=== PATIENT | male | born 1935 | race Caucasian/White ===

== ENCOUNTER 2019-05-15 12:09 | Inpatient (IN) ==
[2019-05-15 13:27] LABS: Basophils % 0.4 % (0.0-0.8); Eosinophils # 0.2 10*3/uL (0.0-0.87); Eosinophils % 2.4 % (0.00-10.9); Hematocrit 45.9 VOL% (42.0-52.0); Hemoglobin 15.6 GM/DL (14.0-18.0); Immature Granulocytes % 0.8 %; Immature Granulocytes Absolute 0.07 #; Lymphocytes # 2.6 10*3/uL (1.4-4.0); Lymphocytes % 28.3 % (21.2-54.2); Mean Corpuscular Volume 99.4 FL (87-102); Mean Platelet Volume 10.3 FL (9.6-12.0); Monocytes % 9.8 % (1.7-12.7); Neutrophils % 58.3 % (38.7-73.9); Platelet Count 249 T/CUMM (130-400); Red Blood Count 4.62 MC/CUMM (3.8-5.5); White Blood Count 9.2 T/CUMM (4-12)
[2019-05-15 13:58] LABS: Albumin 3.8 G/DL (3.4-5.0); Bilirubin,Total 0.8 MG/DL (0.2-1.0); Calcium 9.2 MG/DL (8.5-10.1); Osmolality,Calculated 289.7 MOS/KG (273-304); Total Protein 7.2 G/DL (6.4-8.3)
[2019-05-15 14:49] LABS: Apearance,Urine CLEAR (Clear); Bacteria,Urine Occasional /HPF (Few); Bilirubin,Urine Negative (Negative); Blood, Urine Negative (Negative); Glucose,Urine (UA) >=500 mg/dL (Negative); Ketones,Urine 20 mg/dL (Negative); Nitrite,Urine Negative (Negative); Protein,Urine Negative; RBC,Urine 5 /HPF (0-4); Squamous Epithelial Cell,Urine Occasional /HPF (0-10); Urine Color Yellow (Yellow); Urine Specific Gravity 1.021 (1.001-1.035); WBC,Urine 6 /HPF (0-6)
[2019-05-15] MEDS ORDERED: MINERAL OIL ENEMA 133 ML BOTTLE RECTAL ONE (17:59)
[2019-05-15] MEDS ORDERED: DEXTROSE 10% 25 GM/250 ML BAG IV PRN (18:02)
[2019-05-15] MEDS ORDERED: GLUCAGON 1 MG VIAL IM PRN (18:02)
[2019-05-15] MEDS: cefTRIAXone 1,000 MG in SYRINGE 1 EACH IV SCH (18:33)
[2019-05-15] MEDS: ASPIRIN EC 81 MG TABLET PO SCH (20:20)
[2019-05-15] MEDS: DONEPEZIL 10 MG TABLET PO SCH (20:20)
[2019-05-15] MEDS: CLOPIDOGREL 75 MG TABLET PO SCH (20:21)
[2019-05-15] MEDS: INSULIN LISPRO 100 UNIT/ML SUBCUT SCH (21:06)
[2019-05-16] MEDS ORDERED: MORPHINE 4 MG/1 ML VIAL IV ONE (04:29)
[2019-05-16] MEDS ORDERED: HYDROCORTISONE 2.5% RECTAL CREAM 30 GM TUBE TOP ONE (04:30)
[2019-05-16 04:31] LABS: Basophils # 0.1 10*3/uL (0.0-0.2); Basophils % 0.4 % (0.0-0.8); Eosinophils # 0.5 10*3/uL (0.0-0.87); Eosinophils % 4.2 % (0.00-10.9); Hematocrit 43.2 VOL% (42.0-52.0); Hemoglobin 14.9 GM/DL (14.0-18.0); Immature Granulocytes % 0.8 %; Immature Granulocytes Absolute 0.09 #; Lymphocytes # 3.8 10*3/uL (1.4-4.0); Lymphocytes % 33.5 % (21.2-54.2); Mean Corpuscular HGB Conc 34.5 GM/DL (32-36); Mean Corpuscular Volume 97.5 FL (87-102); Mean Platelet Volume 10.6 FL (9.6-12.0); Monocytes % 12.4 % (1.7-12.7); Neutrophils % 48.7 % (38.7-73.9); Platelet Count 260 T/CUMM (130-400); Red Blood Count 4.43 MC/CUMM (3.8-5.5); Red Cell Distribution Width 12.8 % (9.3-17.3); White Blood Count 11.4 T/CUMM (4-12)
[2019-05-16 05:14] LABS: Albumin 3.6 G/DL (3.4-5.0); Bilirubin,Total 0.7 MG/DL (0.2-1.0); Calcium 9.3 MG/DL (8.5-10.1); Osmolality,Calculated 284.5 MOS/KG (273-304); Thyroid Stimulating Hormone 1.88 uIU/ml (0.358-3.74); Total Protein 7.2 G/DL (6.4-8.3)
[2019-05-16] MEDS: INSULIN LISPRO 100 UNIT/ML SUBCUT SCH ×4 (08:57→20:39)
[2019-05-16] MEDS: POLYETHYLENE GLYCOL POWDER 17 GM PACK PO SCH (08:57)
[2019-05-16] MEDS: LISINOPRIL 20 MG TABLET PO SCH (08:58)
[2019-05-16] MEDS: DUTASTERIDE 0.5 MG CAPSULE PO SCH (08:59)
[2019-05-16] MEDS: DOCUSATE SODIUM 100 MG CAPSULE PO SCH ×2 (08:59→20:39)
[2019-05-16] MEDS: OXYBUTYNIN 5 MG TABLET PO SCH (08:59)
[2019-05-16] MEDS: DILTIAZEM CD 180 MG CAPSULE PO SCH (08:59)
[2019-05-16] MEDS ORDERED: MAGNESIUM CITRATE 300 ML BOTTLE PO PRN (09:39)
[2019-05-16] MEDS: PANTOPRAZOLE 40 MG TABLET PO SCH (14:03)
[2019-05-16] MEDS: cefTRIAXone 1,000 MG in SYRINGE 1 EACH IV SCH (17:20)
[2019-05-16] MEDS: DONEPEZIL 10 MG TABLET PO SCH (20:39)
[2019-05-16] MEDS: ASPIRIN EC 81 MG TABLET PO SCH (20:39)
[2019-05-16] MEDS: CLOPIDOGREL 75 MG TABLET PO SCH (20:39)
[2019-05-17] MEDS ORDERED: MELATONIN 3 MG TABLET PO PRN (00:27)
[2019-05-17 05:58] LABS: Basophils % 0.3 % (0.0-0.8); Eosinophils # 0.4 10*3/uL (0.0-0.87); Eosinophils % 4.3 % (0.00-10.9); Hematocrit 39.2 VOL% (42.0-52.0); Hemoglobin 13.4 GM/DL (14.0-18.0); Lymphocytes # 2.8 10*3/uL (1.4-4.0); Lymphocytes % 28.8 % (21.2-54.2); Mean Corpuscular HGB Conc 34.2 GM/DL (32-36); Mean Corpuscular Volume 98.2 FL (87-102); Mean Platelet Volume 10.7 FL (9.6-12.0); Monocytes % 13.1 % (1.7-12.7); Neutrophils % 52.5 % (38.7-73.9); Platelet Count 226 T/CUMM (130-400); Red Blood Count 3.99 MC/CUMM (3.8-5.5); Red Cell Distribution Width 12.9 % (9.3-17.3); White Blood Count 9.7 T/CUMM (4-12)
[2019-05-17 06:06] LABS: Calcium 8.9 MG/DL (8.5-10.1); Osmolality,Calculated 294.3 MOS/KG (273-304)
[2019-05-17] MEDS: INSULIN LISPRO 100 UNIT/ML SUBCUT SCH ×4 (09:11→21:55)
[2019-05-17] MEDS: POLYETHYLENE GLYCOL POWDER 17 GM PACK PO SCH (09:12)
[2019-05-17] MEDS: DILTIAZEM CD 180 MG CAPSULE PO SCH (09:12)
[2019-05-17] MEDS: LISINOPRIL 20 MG TABLET PO SCH (09:12)
[2019-05-17] MEDS: OXYBUTYNIN 5 MG TABLET PO SCH (09:13)
[2019-05-17] MEDS: PANTOPRAZOLE 40 MG TABLET PO SCH (09:13)
[2019-05-17] MEDS: DUTASTERIDE 0.5 MG CAPSULE PO SCH (09:13)
[2019-05-17] MEDS: DOCUSATE SODIUM 100 MG CAPSULE PO SCH ×2 (09:13→20:56)
[2019-05-17] MEDS: CLOPIDOGREL 75 MG TABLET PO SCH (20:56)
[2019-05-17] MEDS: cefTRIAXone 1,000 MG in SYRINGE 1 EACH IV SCH (20:56)
[2019-05-17] MEDS: ASPIRIN EC 81 MG TABLET PO SCH (20:56)
[2019-05-17] MEDS: DONEPEZIL 10 MG TABLET PO SCH (20:56)
[2019-05-17] MEDS ORDERED: ACETAMINOPHEN 500 MG TABLET PO PRN (23:55)
[2019-05-18] MEDS: DILTIAZEM CD 180 MG CAPSULE PO SCH (08:53)
[2019-05-18] MEDS: DUTASTERIDE 0.5 MG CAPSULE PO SCH (08:53)
[2019-05-18] MEDS: DOCUSATE SODIUM 100 MG CAPSULE PO SCH (08:54)
[2019-05-18] MEDS: PANTOPRAZOLE 40 MG TABLET PO SCH (08:54)
[2019-05-18] MEDS: OXYBUTYNIN 5 MG TABLET PO SCH (08:54)
[2019-05-18] MEDS: POLYETHYLENE GLYCOL POWDER 17 GM PACK PO SCH (08:55)
[2019-05-18] MEDS: LISINOPRIL 20 MG TABLET PO SCH (08:58)
[2019-05-18] MEDS: INSULIN LISPRO 100 UNIT/ML SUBCUT SCH ×2 (09:02→12:15)
[2019-05-18 11:01] LABS: Basophils # 0.1 10*3/uL (0.0-0.2); Basophils % 0.5 % (0.0-0.8); Eosinophils # 0.6 10*3/uL (0.0-0.87); Hematocrit 41.7 VOL% (42.0-52.0); Hemoglobin 14.3 GM/DL (14.0-18.0); Immature Granulocytes % 0.9 %; Immature Granulocytes Absolute 0.08 #; Lymphocytes # 2.2 10*3/uL (1.4-4.0); Lymphocytes % 23.3 % (21.2-54.2); Mean Corpuscular HGB Conc 34.3 GM/DL (32-36); Mean Corpuscular Volume 98.3 FL (87-102); Mean Platelet Volume 10.3 FL (9.6-12.0); Monocytes % 9.6 % (1.7-12.7); Neutrophils % 59.7 % (38.7-73.9); Platelet Count 235 T/CUMM (130-400); Red Blood Count 4.24 MC/CUMM (3.8-5.5); White Blood Count 9.4 T/CUMM (4-12)
[2019-05-18 11:35] LABS: Calcium 8.5 MG/DL (8.5-10.1); Osmolality,Calculated 288.8 MOS/KG (273-304)
[2019-05-18 12:15] VITALS: BP 111/50
== END 2019-05-18 13:22 | disposition home or self-care (01) | DRG 389 ==
LOC: N.ED 12:09 → N.EDINP 16:58 → SUATTDRO 16:58 → N.2E 17:34
PROVIDERS: ADMIT Internal Medicine; ATTEND Internal Medicine Nephrology

== ENCOUNTER 2019-07-21 21:48 | Inpatient (IN) ==
[2019-07-21] MEDS ORDERED: DEXTROSE 50% 25 GM/50 ML SYRINGE IV ONE (21:57)
[2019-07-21] MEDS ORDERED: DEXTROSE 50% 25 GM/50 ML VIAL IV STA (21:59)
[2019-07-21] MEDS ORDERED: DEXTROSE 5% 250 ML IV SCH ×3 (22:00→22:30)
[2019-07-21 22:19] LABS: Basophils % 0.2 % (0.0-0.8); Eosinophils # 0.2 10*3/uL (0.0-0.87); Eosinophils % 1.9 % (0.00-10.9); Hematocrit 39.9 VOL% (42.0-52.0); Hemoglobin 13.2 GM/DL (14.0-18.0); Immature Granulocytes % 0.5 %; Immature Granulocytes Absolute 0.05 #; Lymphocytes # 1.3 10*3/uL (1.4-4.0); Lymphocytes % 13.4 % (21.2-54.2); Mean Corpuscular HGB Conc 33.1 GM/DL (32-36); Mean Corpuscular Volume 102.8 FL (87-102); Mean Platelet Volume 10.2 FL (9.6-12.0); Monocytes % 8.6 % (1.7-12.7); Neutrophils % 75.4 % (38.7-73.9); Platelet Count 218 T/CUMM (130-400); Red Blood Count 3.88 MC/CUMM (3.8-5.5); Red Cell Distribution Width 13.7 % (9.3-17.3); White Blood Count 9.4 T/CUMM (4-12)
[2019-07-21 22:30] LABS: INR 0.9; PT Patient Result 10.2 SECS (9.6-12.2)
[2019-07-21 22:50] LABS: Alanine Aminotransferase 22 U/L (16-61); Albumin 3.5 G/DL (3.4-5.0); Alkaline Phosphatase 82 U/L (45-117); Amylase 64 U/L (25-115); Aspartate Amino Transferase 26 U/L (0-37); Blood Urea Nitrogen 28 MG/DL (7-18); Calcium 9.5 MG/DL (8.5-10.1); Estimated Glom Filtration Rate 34 ML/MIN; Osmolality,Calculated 283.3 MOS/KG (273-304)
[2019-07-21 22:58] LABS: Glucose 42 MG/DL (74-106); Troponin I 0.102 NG/ML (0.00-0.045)
[2019-07-22 00:54] LABS: Apearance,Urine CLEAR (Clear); Bilirubin,Urine Negative (Negative); Blood, Urine Negative (Negative); Glucose,Urine (UA) 50 mg/dL (Negative); Hyaline Casts,Urine 3 /LPF (0-3); Ketones,Urine Negative (Negative); Mucus,Urine Occasional /LPF (Occasional); Nitrite,Urine Negative (Negative); Protein,Urine Negative; RBC,Urine 1 /HPF (0-4); Squamous Epithelial Cell,Urine Occasional /HPF (0-10); Urine Color Yellow (Yellow); Urine Specific Gravity 1.017 (1.001-1.035); Urine Urobilinogen < 2.0 EU/DL (0.2-1.0); WBC,Urine <1 /HPF (0-6)
[2019-07-22] MEDS ORDERED: ACETAMINOPHEN 325 MG TABLET PO PRN (03:33)
[2019-07-22] MEDS ORDERED: DEXTROSE 50% 25 GM/50 ML SYRINGE IV PRN (03:33)
[2019-07-22] MEDS ORDERED: GLUCAGON 1 MG VIAL IM PRN (03:33)
[2019-07-22] MEDS ORDERED: ONDANSETRON 4 MG/2 ML VIAL IV PRN (03:33)
[2019-07-22] MEDS ORDERED: DEXTROSE 10% 250 ML BAG IV PRN (03:42)
[2019-07-22] MEDS: INSULIN REGULAR 100 UNIT/ML SUBCUT SCH ×9 (06:41→22:45)
[2019-07-22] MEDS ORDERED: INSULIN REGULAR 100 UNIT/ML SUBCUT SCH (07:30)
[2019-07-22 08:16] LABS: Albumin 2.7 G/DL (3.4-5.0); Bilirubin,Total 0.4 MG/DL (0.2-1.0); Calcium 8.6 MG/DL (8.5-10.1); Osmolality,Calculated 285.5 MOS/KG (273-304); Total Protein 5.8 G/DL (6.4-8.3)
[2019-07-22] MEDS ORDERED: Empagliflozin [Jardiance] 10 MG PO SCH (09:00)
[2019-07-22] MEDS ORDERED: NON-FORMULARY MEDICATION (Omeprazole 20 MG) PO SCH (09:00)
[2019-07-22] MEDS: CHOLECALCIFEROL 400 UNIT TABLET PO SCH (09:11)
[2019-07-22] MEDS: MULTIVITAMIN (CENTRUM) TABLET PO SCH (09:11)
[2019-07-22] MEDS: DILTIAZEM CD 180 MG CAPSULE PO SCH (09:11)
[2019-07-22] MEDS: CALCIUM (CARBONATE) 500 MG TABLET PO SCH (09:11)
[2019-07-22] MEDS: OMEGA 3 ACID ETHYL ESTERS 1 GM CAPSULE PO SCH (09:11)
[2019-07-22] MEDS: SELENIUM 200 MCG TABLET PO SCH (09:11)
[2019-07-22] MEDS: lisinopriL 20 MG TABLET PO SCH (09:11)
[2019-07-22] MEDS: ENOXAPARIN 30 MG/0.3 ML SYRINGE SUBCUT SCH (09:12)
[2019-07-22] MEDS: DUTASTERIDE 0.5 MG CAPSULE PO SCH (09:12)
[2019-07-22] MEDS: MEMANTINE 10 MG TABLET PO SCH ×2 (09:12→21:36)
[2019-07-22] MEDS: MAGNESIUM OXIDE 400 MG TABLET PO SCH (09:12)
[2019-07-22] MEDS: PANTOPRAZOLE 40 MG TABLET PO SCH (09:12)
[2019-07-22] MEDS: DONEPEZIL 10 MG TABLET PO SCH (21:36)
[2019-07-23] MEDS: INSULIN REGULAR 100 UNIT/ML SUBCUT SCH ×11 (00:02→21:24)
[2019-07-23 05:54] LABS: Free T4 (Free Thyroxine) 0.86 NG/DL (0.76-1.46); Risk Ratio 2.66; Thyroid Stimulating Hormone 2.63 uIU/ml (0.358-3.74); VLDL CHOLESTEROL 19.2 MG/DL
[2019-07-23] MEDS: CHOLECALCIFEROL 400 UNIT TABLET PO SCH (08:47)
[2019-07-23] MEDS: lisinopriL 20 MG TABLET PO SCH (08:47)
[2019-07-23] MEDS: PANTOPRAZOLE 40 MG TABLET PO SCH (08:47)
[2019-07-23] MEDS: DUTASTERIDE 0.5 MG CAPSULE PO SCH (08:47)
[2019-07-23] MEDS: DILTIAZEM CD 180 MG CAPSULE PO SCH (08:48)
[2019-07-23] MEDS: OMEGA 3 ACID ETHYL ESTERS 1 GM CAPSULE PO SCH (08:48)
[2019-07-23] MEDS: CALCIUM (CARBONATE) 500 MG TABLET PO SCH (08:48)
[2019-07-23] MEDS: SELENIUM 200 MCG TABLET PO SCH (08:49)
[2019-07-23] MEDS: MEMANTINE 10 MG TABLET PO SCH ×2 (08:49→21:21)
[2019-07-23] MEDS: MAGNESIUM OXIDE 400 MG TABLET PO SCH (08:49)
[2019-07-23] MEDS: MULTIVITAMIN (CENTRUM) TABLET PO SCH (08:49)
[2019-07-23] MEDS: ENOXAPARIN 30 MG/0.3 ML SYRINGE SUBCUT SCH (08:49)
[2019-07-23] MEDS: amLODIPine 10 MG TABLET PO SCH (17:21)
[2019-07-23] MEDS: ceFAZolin 2,000 MG in PREMIX 1 EACH IV SCH (17:22)
[2019-07-23] MEDS ORDERED: INSULIN GLARGINE 100 UNIT/ML SUBCUT SCH (21:00)
[2019-07-23] MEDS: DONEPEZIL 10 MG TABLET PO SCH (21:21)
[2019-07-24] MEDS: INSULIN REGULAR 100 UNIT/ML SUBCUT SCH ×12 (00:30→22:40)
[2019-07-24] MEDS: ceFAZolin 2,000 MG in PREMIX 1 EACH IV SCH ×3 (01:45→18:07)
[2019-07-24 06:13] LABS: Basophils % 0.4 % (0.0-0.8); Eosinophils # 0.8 10*3/uL (0.0-0.87); Eosinophils % 10.2 % (0.00-10.9); Hematocrit 40.7 VOL% (42.0-52.0); Hemoglobin 13.6 GM/DL (14.0-18.0); Immature Granulocytes % 0.3 %; Immature Granulocytes Absolute 0.02 #; Lymphocytes # 2.2 10*3/uL (1.4-4.0); Lymphocytes % 30.1 % (21.2-54.2); Mean Corpuscular HGB Conc 33.4 GM/DL (32-36); Mean Corpuscular Volume 101.5 FL (87-102); Mean Platelet Volume 10.3 FL (9.6-12.0); Monocytes % 14.1 % (1.7-12.7); Neutrophils % 44.9 % (38.7-73.9); Platelet Count 221 T/CUMM (130-400); Red Blood Count 4.01 MC/CUMM (3.8-5.5); Red Cell Distribution Width 13.2 % (9.3-17.3); White Blood Count 7.4 T/CUMM (4-12)
[2019-07-24 06:36] LABS: Calcium 8.8 MG/DL (8.5-10.1); Osmolality,Calculated 281.7 MOS/KG (273-304)
[2019-07-24] MEDS: OMEGA 3 ACID ETHYL ESTERS 1 GM CAPSULE PO SCH (09:23)
[2019-07-24] MEDS: DUTASTERIDE 0.5 MG CAPSULE PO SCH (09:23)
[2019-07-24] MEDS: MULTIVITAMIN (CENTRUM) TABLET PO SCH (09:23)
[2019-07-24] MEDS: lisinopriL 20 MG TABLET PO SCH (09:23)
[2019-07-24] MEDS: SELENIUM 200 MCG TABLET PO SCH (09:23)
[2019-07-24] MEDS: MEMANTINE 10 MG TABLET PO SCH ×2 (09:24→21:39)
[2019-07-24] MEDS: amLODIPine 10 MG TABLET PO SCH (09:24)
[2019-07-24] MEDS: MAGNESIUM OXIDE 400 MG TABLET PO SCH (09:24)
[2019-07-24] MEDS: CALCIUM (CARBONATE) 500 MG TABLET PO SCH (09:24)
[2019-07-24] MEDS: PANTOPRAZOLE 40 MG TABLET PO SCH (09:24)
[2019-07-24] MEDS: CHOLECALCIFEROL 400 UNIT TABLET PO SCH (09:24)
[2019-07-24] MEDS: DILTIAZEM CD 180 MG CAPSULE PO SCH (09:25)
[2019-07-24] MEDS: ENOXAPARIN 30 MG/0.3 ML SYRINGE SUBCUT SCH (09:26)
[2019-07-24] MEDS: DOXYCYCLINE HYCLATE INJ 100 MG in SODIUM CHLORIDE 0.9% 100 ML IV SCH ×2 (10:14→21:39)
[2019-07-24] MEDS ORDERED: INSULIN GLARGINE 100 UNIT/ML SUBCUT SCH ×2 (13:14→21:00)
[2019-07-24] MEDS: hydrALAZINE 25 MG TABLET PO SCH ×2 (13:45→21:39)
[2019-07-24] MEDS: DONEPEZIL 10 MG TABLET PO SCH (21:39)
[2019-07-25] MEDS: INSULIN REGULAR 100 UNIT/ML SUBCUT SCH ×7 (00:30→13:53)
[2019-07-25] MEDS: ceFAZolin 2,000 MG in PREMIX 1 EACH IV SCH ×2 (02:16→08:43)
[2019-07-25 06:07] LABS: Calcium 9.2 MG/DL (8.5-10.1)
[2019-07-25] MEDS: DILTIAZEM CD 180 MG CAPSULE PO SCH (08:41)
[2019-07-25] MEDS: OMEGA 3 ACID ETHYL ESTERS 1 GM CAPSULE PO SCH (08:41)
[2019-07-25] MEDS: DUTASTERIDE 0.5 MG CAPSULE PO SCH (08:41)
[2019-07-25] MEDS: lisinopriL 20 MG TABLET PO SCH (08:42)
[2019-07-25] MEDS: MEMANTINE 10 MG TABLET PO SCH (08:42)
[2019-07-25] MEDS: hydrALAZINE 25 MG TABLET PO SCH (08:42)
[2019-07-25] MEDS: CALCIUM (CARBONATE) 500 MG TABLET PO SCH (08:42)
[2019-07-25] MEDS: amLODIPine 10 MG TABLET PO SCH (08:42)
[2019-07-25] MEDS: PANTOPRAZOLE 40 MG TABLET PO SCH (08:42)
[2019-07-25] MEDS: CHOLECALCIFEROL 400 UNIT TABLET PO SCH (08:42)
[2019-07-25] MEDS: MULTIVITAMIN (CENTRUM) TABLET PO SCH (08:42)
[2019-07-25] MEDS: MAGNESIUM OXIDE 400 MG TABLET PO SCH (08:42)
[2019-07-25] MEDS: SELENIUM 200 MCG TABLET PO SCH (08:42)
[2019-07-25] MEDS: ENOXAPARIN 30 MG/0.3 ML SYRINGE SUBCUT SCH (08:43)
[2019-07-25] MEDS: DOXYCYCLINE HYCLATE INJ 100 MG in SODIUM CHLORIDE 0.9% 100 ML IV SCH (08:43)
[2019-07-25 12:11] VITALS: BP 166/73
== END 2019-07-25 13:48 | disposition home or self-care (01) | DRG 637 ==
LOC: EDBD → EDUNIT# → N.ED 21:48 → N.EDINP 21:48 → N.3E 07-22 03:36 → UNDODISOB 07-25 13:48
PROVIDERS: ADMIT Internal Medicine; ATTEND Internal Medicine

== ENCOUNTER 2019-07-26 19:14 | Observation (INO) ==
[2019-07-26 20:41] LABS: Basophils % 0.4 % (0.0-0.8); Eosinophils # 0.2 10*3/uL (0.0-0.87); Hematocrit 44.5 VOL% (42.0-52.0); Hemoglobin 15.4 GM/DL (14.0-18.0); Immature Granulocytes % 0.7 %; Immature Granulocytes Absolute 0.07 #; Lymphocytes # 1.5 10*3/uL (1.4-4.0); Lymphocytes % 15.6 % (21.2-54.2); Mean Corpuscular HGB Conc 34.6 GM/DL (32-36); Mean Corpuscular Volume 98.7 FL (87-102); Mean Platelet Volume 10.8 FL (9.6-12.0); Monocytes % 8.1 % (1.7-12.7); Neutrophils % 73.2 % (38.7-73.9); Platelet Count 178 T/CUMM (130-400); Red Blood Count 4.51 MC/CUMM (3.8-5.5); Red Cell Distribution Width 13.8 % (9.3-17.3); White Blood Count 9.7 T/CUMM (4-12)
[2019-07-26 20:48] LABS: Platelet Estimate Adequate
[2019-07-26 20:55] LABS: Apearance,Urine CLEAR (Clear); Bilirubin,Urine Negative (Negative); Blood, Urine Negative (Negative); Glucose,Urine (UA) 50 mg/dL (Negative); Hyaline Casts,Urine 3 /LPF (0-3); Ketones,Urine Negative (Negative); Mucus,Urine Occasional /LPF (Occasional); Nitrite,Urine Negative (Negative); Protein,Urine Negative; RBC,Urine 1 /HPF (0-4); Squamous Epithelial Cell,Urine Occasional /HPF (0-10); Urine Color Yellow (Yellow); Urine Specific Gravity 1.013 (1.001-1.035); Urine Urobilinogen < 2.0 EU/DL (0.2-1.0); WBC,Urine <1 /HPF (0-6)
[2019-07-26 21:03] LABS: Albumin 3.5 G/DL (3.4-5.0); Bilirubin,Total 0.6 MG/DL (0.2-1.0); Calcium 9.1 MG/DL (8.5-10.1)
[2019-07-26] MEDS ORDERED: ACETAMINOPHEN 325 MG TABLET PO PRN (22:48)
[2019-07-26] MEDS ORDERED: DEXTROSE 50% 25 GM/50 ML VIAL IV PRN (22:48)
[2019-07-26] MEDS ORDERED: ONDANSETRON 4 MG/2 ML VIAL IV PRN (22:48)
[2019-07-26] MEDS ORDERED: GLUCAGON 1 MG VIAL IM PRN (22:48)
[2019-07-27 12:41] VITALS: BP 145/74
== END 2019-07-27 14:56 | disposition home or self-care (01) ==
LOC: EDBD → EDUNIT# → N.ED 19:14 → N.EDINP 19:14 → SUPCPDRO 22:48 → N.5E 23:18
PROVIDERS: ADMIT Internal Medicine; ATTEND Internal Medicine

== ENCOUNTER 2020-01-24 17:00 | Inpatient (IN) ==
[2020-01-24] MEDS ORDERED: SODIUM CHLORIDE 0.9% 1,000 ML IV STA (17:32)
[2020-01-24 18:15] LABS: Basophils % 0.3 % (0.0-0.8); Eosinophils # 0.2 10*3/uL (0.0-0.87); Eosinophils % 2.5 % (0.00-10.9); Hematocrit 39.8 VOL% (42.0-52.0); Hemoglobin 13.6 GM/DL (14.0-18.0); Immature Granulocytes % 0.5 %; Immature Granulocytes Absolute 0.03 #; Lymphocytes % 30.5 % (21.2-54.2); Mean Corpuscular HGB Conc 34.2 GM/DL (32-36); Mean Platelet Volume 11.1 FL (9.6-12.0); Monocytes % 8.9 % (1.7-12.7); Neutrophils % 57.3 % (38.7-73.9); Platelet Count 191 T/CUMM (130-400); Red Blood Count 4.06 MC/CUMM (3.8-5.5); Red Cell Distribution Width 12.6 % (9.3-17.3); White Blood Count 6.4 T/CUMM (4-12)
[2020-01-24 18:35] LABS: PT Patient Result 11.2 SECS (9.8-11.9); Partial Thromboplastin Time 27.6 SECS (23.9-33.8)
[2020-01-24 18:41] LABS: Alanine Aminotransferase 16 U/L (16-61); Albumin 3.5 G/DL (3.4-5.0); Alkaline Phosphatase 87 U/L (45-117); Aspartate Amino Transferase 15 U/L (0-37); Blood Urea Nitrogen 56 MG/DL (7-18); Calcium 8.9 MG/DL (8.5-10.1); Estimated Glom Filtration Rate 11 ML/MIN; Glucose 409 MG/DL (74-106); Total Protein 6.9 G/DL (6.4-8.3); Troponin I < 0.015 NG/ML (0.00-0.045)
[2020-01-24] MEDS ORDERED: INSULIN REGULAR 100 UNIT/ML IV STA (18:56)
[2020-01-24 19:33] LABS: ABG Base Excess -4.2 MMOL/L (-2.5-2.5); ABG HCO3 16.5 MMOL/L (20-26); ABG Oxygen Saturation 96.1 % (95-100); ABG PCO2 21.1 MM HG (35-48); ABG PH 7.511 (7.35-7.45); ABG PO2 79.8 MM HG (80-95); ABG TCO2 17.1 MMOL/L (23-27); Allen Test Positive
[2020-01-24 19:49] LABS: Ferritin 139.3 ng/ml (26-388)
[2020-01-24] MEDS ORDERED: ONDANSETRON 4 MG/2 ML VIAL IV PRN (20:17)
[2020-01-24] MEDS ORDERED: DOCUSATE SODIUM 100 MG CAPSULE PO PRN (20:17)
[2020-01-24] MEDS ORDERED: ACETAMINOPHEN 325 MG TABLET PO PRN (20:17)
[2020-01-24] MEDS ORDERED: GLUCAGON 1 MG VIAL IM PRN ×2 (20:17)
[2020-01-24] MEDS ORDERED: DEXTROSE 50% 25 GM/50 ML VIAL IV PRN ×2 (20:17)
[2020-01-24] MEDS: SODIUM CHLORIDE 0.9% 1,000 ML IV SCH (22:29)
[2020-01-24] MEDS: AZTREONAM 500 MG in SODIUM CHLORIDE 0.9% 100 ML IV SCH (22:30)
[2020-01-24] MEDS: INSULIN REGULAR 100 UNIT/ML SUBCUT SCH (22:30)
[2020-01-24] MEDS: CLINDAMYCIN INJ 300 MG in PREMIX 1 EACH IV SCH (23:30)
[2020-01-25] MEDS: INSULIN REGULAR 100 UNIT/ML SUBCUT SCH ×4 (01:00→21:47)
[2020-01-25] MEDS: CLINDAMYCIN INJ 300 MG in PREMIX 1 EACH IV SCH (06:37)
[2020-01-25] MEDS ORDERED: ENOXAPARIN 80 MG/0.8 ML SYRINGE SUBCUT SCH (09:00)
[2020-01-25] MEDS: AZTREONAM 500 MG in SODIUM CHLORIDE 0.9% 100 ML IV SCH (09:42)
[2020-01-25 10:09] LABS: Apearance,Urine CLEAR (Clear); Bacteria,Urine Occasional /HPF (Few); Bilirubin,Urine Negative (Negative); Blood, Urine Negative (Negative); Glucose,Urine (UA) >=500 mg/dL (Negative); Ketones,Urine Negative (Negative); Mucus,Urine Occasional /LPF (Occasional); Nitrite,Urine Negative (Negative); Protein,Urine Negative; RBC,Urine 2 /HPF (0-4); Squamous Epithelial Cell,Urine Occasional /HPF (0-10); Urine Color Yellow (Yellow); Urine Specific Gravity 1.015 (1.001-1.035); Urine Urobilinogen < 2.0 EU/DL (0.2-1.0); WBC,Urine 2 /HPF (0-6)
[2020-01-25] MEDS: SODIUM CHLORIDE 0.9% 1,000 ML IV SCH (16:08)
[2020-01-26] MEDS: SODIUM CHLORIDE 0.9% 1,000 ML IV SCH (04:38)
[2020-01-26 06:06] LABS: Calcium 8.6 MG/DL (8.5-10.1); Osmolality,Calculated 289.5 MOS/KG (273-304)
[2020-01-26] MEDS: INSULIN REGULAR 100 UNIT/ML SUBCUT SCH ×2 (07:58→11:49)
[2020-01-26] MEDS ORDERED: ENOXAPARIN 30 MG/0.3 ML SYRINGE SUBCUT SCH (09:00)
[2020-01-26 11:31] VITALS: BP 126/62
== END 2020-01-26 13:20 | disposition home health service (06) | DRG 640 ==
LOC: EDUNIT# → EDBD → N.ED 17:00 → N.EDINP 20:05 → N.3E 21:40
PROVIDERS: ADMIT Internal Medicine Geriatric Medicine; ATTEND Internal Medicine Geriatric Medicine

== ENCOUNTER 2020-08-18 13:44 | Observation (INO) ==
[2020-08-18] MEDS ORDERED: DEXTROSE 50% 25 GM/50 ML VIAL IV STA (14:19)
[2020-08-18] MEDS ORDERED: DEXTROSE 50% 25 GM/50 ML SYRINGE IV ONE (14:21)
[2020-08-18 14:43] LABS: Basophils % 0.3 % (0.0-0.8); Eosinophils # 0.5 10*3/uL (0.0-0.87); Hematocrit 38.5 VOL% (42.0-52.0); Hemoglobin 13.4 GM/DL (14.0-18.0); Immature Granulocytes % 0.3 %; Immature Granulocytes Absolute 0.03 #; Lymphocytes # 3.9 10*3/uL (1.4-4.0); Lymphocytes % 43.4 % (21.2-54.2); Mean Corpuscular HGB Conc 34.8 GM/DL (32-36); Mean Corpuscular Volume 96.3 FL (87-102); Mean Platelet Volume 10.6 FL (9.6-12.0); Monocytes % 7.7 % (1.7-12.7); Neutrophils % 43.3 % (38.7-73.9); Platelet Count 210 T/CUMM (130-400); Red Cell Distribution Width 13.2 % (9.3-17.3); White Blood Count 9.1 T/CUMM (4-12)
[2020-08-18 14:56] LABS: Albumin 3.5 G/DL (3.4-5.0); Bilirubin,Total 0.6 MG/DL (0.2-1.0); Potassium 3.9 MMOL/L (3.5-5.1); Total Protein 6.7 G/DL (6.4-8.2)
[2020-08-18] MEDS ORDERED: ACETAMINOPHEN 325 MG TABLET PO PRN (16:28)
[2020-08-18] MEDS ORDERED: ONDANSETRON 4 MG/2 ML VIAL IV PRN (16:28)
[2020-08-18] MEDS ORDERED: CALCIUM CARBONATE CHEW 500 MG TABLET PO PRN (16:28)
[2020-08-18] MEDS ORDERED: LACTULOSE 20 GM/30 ML UDCUP PO PRN (16:28)
[2020-08-18] MEDS ORDERED: DOCUSATE SODIUM 100 MG CAPSULE PO PRN (16:28)
[2020-08-18] MEDS ORDERED: BISACODYL 5 MG TABLET PO PRN (16:28)
[2020-08-18] MEDS ORDERED: SIMETHICONE CHEW 125 MG TABLET PO PRN (16:28)
[2020-08-18 16:32] LABS: Bilirubin,Urine Negative (Negative); Blood, Urine Negative (Negative); Glucose,Urine (UA) 50 mg/dL (Negative); Hyaline Casts,Urine 17 /LPF (0-3); Ketones,Urine Negative (Negative); Mucus,Urine Occasional /LPF (Occasional); Nitrite,Urine Negative (Negative); Protein,Urine Negative; RBC,Urine 2 /HPF (0-4); Urine Appearance CLEAR (Clear); Urine Color Yellow (Yellow); Urine Specific Gravity 1.016 (1.001-1.035); Urine Urobilinogen < 2.0 EU/DL (0.2-1.0); WBC,Urine 1 /HPF (0-6)
[2020-08-18] MEDS: DEXTROSE 5% NACL 0.45% 1,000 ML IV SCH (19:05)
[2020-08-18] MEDS ORDERED: DONEPEZIL 10 MG TABLET PO SCH (21:00)
[2020-08-18] MEDS ORDERED: ENOXAPARIN 30 MG/0.3 ML SYRINGE SUBCUT SCH (21:00)
[2020-08-18] MEDS: carvediloL 12.5 MG TABLET PO SCH (21:58)
[2020-08-18] MEDS: MEMANTINE 10 MG TABLET PO SCH (21:58)
[2020-08-19 06:09] LABS: Albumin 2.8 G/DL (3.4-5.0); Bilirubin,Total 1.2 MG/DL (0.2-1.0); Calcium 8.4 MG/DL (8.5-10.1); Osmolality,Calculated 288.4 MOS/KG (273-304); Potassium 3.7 MMOL/L (3.5-5.1)
[2020-08-19 07:59] VITALS: BP 106/45
[2020-08-19] MEDS ORDERED: ALFUZOSIN 10 MG TABLET PO SCH (08:00)
[2020-08-19] MEDS: MEMANTINE 10 MG TABLET PO SCH (08:35)
[2020-08-19] MEDS: DEXTROSE 5% NACL 0.45% 1,000 ML IV SCH (08:37)
[2020-08-19] MEDS ORDERED: CLOPIDOGREL 75 MG TABLET PO SCH (09:00)
[2020-08-19] MEDS ORDERED: lisinopriL 20 MG TABLET PO SCH (09:00)
[2020-08-19] MEDS: carvediloL 12.5 MG TABLET PO SCH (09:00)
[2020-08-19] MEDS ORDERED: PANTOPRAZOLE 40 MG TABLET PO SCH ×2 (09:00)
[2020-08-19] MEDS ORDERED: DILTIAZEM CD 180 MG CAPSULE PO SCH (09:00)
[2020-08-19] MEDS ORDERED: amLODIPine 10 MG TABLET PO SCH (09:00)
[2020-08-19] MEDS ORDERED: DUTASTERIDE 0.5 MG CAPSULE PO SCH (09:00)
== END 2020-08-19 15:39 | disposition home or self-care (01) ==
LOC: EDUNIT# → N.EDINP 13:44 → N.ED 13:44 → N.3E 18:20
PROVIDERS: ADMIT Internal Medicine; ATTEND Internal Medicine

== ENCOUNTER 2021-05-09 14:12 | Observation (INO) ==
[2021-05-09 15:41] LABS: Albumin 3.4 G/DL (3.4-5.0); Bilirubin,Total 0.7 MG/DL (0.20-1.00); Calcium 8.8 MG/DL (8.5-10.1); Osmolality,Calculated 288.7 MOS/KG (273-304); Potassium 4.3 MMOL/L (3.5-5.1); Total Protein 6.2 G/DL (6.4-8.2)
[2021-05-09 16:27] LABS: Basophils % 0.3 % (0.0-0.8); Eosinophils # 0.3 10*3/uL (0.0-0.87); Eosinophils % 2.7 % (0.00-10.9); Hematocrit 37.9 VOL% (42.0-52.0); Immature Granulocytes % 0.6 %; Immature Granulocytes Absolute 0.06 #; Lymphocytes # 3.6 10*3/uL (1.4-4.0); Lymphocytes % 37.8 % (21.2-54.2); Mean Corpuscular HGB Conc 34.3 GM/DL (32-36); Mean Corpuscular Volume 96.9 FL (87-102); Mean Platelet Volume 10.6 FL (9.6-12.0); Monocytes % 7.3 % (1.7-12.7); Neutrophils % 51.3 % (38.7-73.9); Platelet Count 202 T/CUMM (130-400); Red Blood Count 3.91 MC/CUMM (3.8-5.5); Red Cell Distribution Width 13.2 % (9.3-17.3); White Blood Count 9.6 T/CUMM (4-12)
[2021-05-09 16:52] LABS: INR 1.1; PT Patient Result 12.4 SECS (10.5-12.0)
[2021-05-09 17:51] LABS: Bacteria,Urine Occasional /HPF (Few); Bilirubin,Urine Negative (Negative); Blood, Urine Small mg/dL (Negative); Glucose,Urine (UA) >=500 mg/dL (Negative); Hyaline Casts,Urine 4 /LPF (0-3); Ketones,Urine Negative (Negative); Mucus,Urine Occasional /LPF (Occasional); Nitrite,Urine Negative (Negative); Protein,Urine 30 MG/DL; RBC,Urine 3 /HPF (0-4); Squamous Epithelial Cell,Urine Occasional /HPF (0-10); Urine Appearance CLEAR (Clear); Urine Color Yellow (Yellow); Urine Specific Gravity 1.015 (1.001-1.035); Urine Urobilinogen < 2.0 EU/DL (<2.0)
[2021-05-09] MEDS ORDERED: GLUCAGON 1 MG VIAL IM PRN ×2 (19:05)
[2021-05-09] MEDS ORDERED: DEXTROSE 50% 25 GM/50 ML SYRINGE IV PRN (19:05)
[2021-05-09] MEDS ORDERED: DEXTROSE 50% 25 GM/50 ML VIAL IV PRN (19:05)
[2021-05-09] MEDS: SODIUM CHLORIDE 0.9% 1,000 ML IV SCH (19:34)
[2021-05-09] MEDS: INSULIN LISPRO 100 UNIT/ML SUBCUT SCH (20:53)
[2021-05-09] MEDS ORDERED: DONEPEZIL 10 MG TABLET PO SCH (21:00)
[2021-05-09] MEDS ORDERED: ENOXAPARIN 30 MG/0.3 ML SYRINGE SUBCUT SCH (21:00)
[2021-05-09] MEDS: MEMANTINE 10 MG TABLET PO SCH (21:03)
[2021-05-10 05:24] LABS: Basophils % 0.3 % (0.0-0.8); Eosinophils # 0.2 10*3/uL (0.0-0.87); Eosinophils % 2.5 % (0.00-10.9); Hemoglobin 13.4 GM/DL (14.0-18.0); Immature Granulocytes % 0.3 %; Immature Granulocytes Absolute 0.03 #; Lymphocytes # 4.1 10*3/uL (1.4-4.0); Lymphocytes % 46.3 % (21.2-54.2); Mean Corpuscular HGB Conc 35.3 GM/DL (32-36); Mean Platelet Volume 10.6 FL (9.6-12.0); Monocytes % 11.6 % (1.7-12.7); Platelet Count 202 T/CUMM (130-400); White Blood Count 8.7 T/CUMM (4-12)
[2021-05-10 06:10] LABS: Calcium 8.4 MG/DL (8.5-10.1); Osmolality,Calculated 284.3 MOS/KG (273-304); Potassium 3.7 MMOL/L (3.5-5.1); Risk Ratio 4.84; Thyroid Stimulating Hormone 0.846 uIU/ml (0.358-3.74); VLDL Cholesterol 32.6 MG/DL
[2021-05-10] MEDS ORDERED: ALFUZOSIN 10 MG TABLET PO SCH (08:00)
[2021-05-10] MEDS ORDERED: DUTASTERIDE 0.5 MG CAPSULE PO SCH (09:00)
[2021-05-10] MEDS ORDERED: PANTOPRAZOLE 40 MG TABLET PO SCH (09:00)
[2021-05-10] MEDS ORDERED: lisinopriL 20 MG TABLET PO SCH (09:00)
[2021-05-10] MEDS ORDERED: MAGNESIUM OXIDE 400 MG TABLET PO SCH (09:00)
[2021-05-10] MEDS ORDERED: CLOPIDOGREL 75 MG TABLET PO SCH (09:00)
[2021-05-10] MEDS ORDERED: SELENIUM 200 MCG PO SCH (09:00)
[2021-05-10] MEDS ORDERED: amLODIPine 10 MG TABLET PO SCH (09:00)
[2021-05-10] MEDS ORDERED: ASPIRIN EC 81 MG TABLET PO SCH (09:00)
[2021-05-10] MEDS: MEMANTINE 10 MG TABLET PO SCH (10:05)
[2021-05-10] MEDS: SODIUM CHLORIDE 0.9% 1,000 ML IV SCH (10:07)
[2021-05-10] MEDS: INSULIN LISPRO 100 UNIT/ML SUBCUT SCH ×3 (10:17→15:42)
[2021-05-10 15:41] VITALS: BP 131/49
== END 2021-05-10 18:15 | disposition home or self-care (01) ==
LOC: EDUNIT# → EDBD → N.TELEN 14:12 → N.ED 14:12 → N.TELEN 22:57
PROVIDERS: ADMIT Internal Medicine; ATTEND Internal Medicine

== ENCOUNTER 2021-11-25 15:19 | Observation (INO) ==
[2021-11-25 15:59] LABS: Basophils % 0.4 % (0.0-0.8); Eosinophils # 0.6 10*3/uL (0.0-0.87); Eosinophils % 5.6 % (0.00-10.9); Hematocrit 35.3 VOL% (42.0-52.0); Hemoglobin 12.2 GM/DL (14.0-18.0); Immature Granulocytes % 0.5 %; Immature Granulocytes Absolute 0.05 #; Lymphocytes % 40.5 % (21.2-54.2); Mean Corpuscular HGB Conc 34.6 GM/DL (32-36); Mean Corpuscular Volume 97.8 FL (87-102); Monocytes # 0.9 10*3/uL (0.11-0.8); Monocytes % 8.6 % (1.7-12.7); Neutrophils % 44.4 % (38.7-73.9); Platelet Count 191 T/CUMM (130-400); Red Blood Count 3.61 MC/CUMM (3.8-5.5); Red Cell Distribution Width 14.2 % (9.3-17.3); White Blood Count 9.8 T/CUMM (4-12)
[2021-11-25 16:20] LABS: Albumin 3.4 G/DL (3.4-5.0); Bilirubin,Total 0.6 MG/DL (0.20-1.00); Calcium 8.9 MG/DL (8.5-10.1); Osmolality,Calculated 294.5 MOS/KG (273-304); Total Protein 6.6 G/DL (6.4-8.2)
[2021-11-25] MEDS ORDERED: SODIUM CHLORIDE 0.9% 1,000 ML IV STA (16:39)
[2021-11-25] MEDS ORDERED: GLUCAGON 1 MG VIAL IM PRN (17:16)
[2021-11-25] MEDS ORDERED: ONDANSETRON 4 MG/2 ML VIAL IV PRN (17:16)
[2021-11-25] MEDS ORDERED: ACETAMINOPHEN 325 MG TABLET PO PRN (17:16)
[2021-11-25] MEDS ORDERED: ALBUTEROL 2.5 MG/3 ML NEB RESP TX PRN (17:16)
[2021-11-25] MEDS ORDERED: ALUMINUM/MAGNES/SIMETH MAX STR 30 ML UDCUP PO PRN (17:16)
[2021-11-25] MEDS ORDERED: LACTULOSE 20 GM/30 ML UDCUP PO PRN (17:16)
[2021-11-25] MEDS ORDERED: CALCIUM CARBONATE CHEW 500 MG TABLET PO PRN (17:16)
[2021-11-25] MEDS ORDERED: DEXTROSE 10% 250 ML BAG IV PRN (17:26)
[2021-11-25] MEDS: ENOXAPARIN 30 MG/0.3 ML SYRINGE SUBCUT SCH (18:12)
[2021-11-25] MEDS: SODIUM CHLORIDE 0.9% 1,000 ML IV SCH (19:22)
[2021-11-25] MEDS: DOCUSATE SODIUM 100 MG CAPSULE PO SCH (22:25)
[2021-11-25] MEDS: INSULIN REGULAR 100 UNIT/ML SUBCUT SCH (22:41)
[2021-11-26 05:34] LABS: Basophils % 0.5 % (0.0-0.8); Eosinophils # 0.5 10*3/uL (0.0-0.87); Eosinophils % 6.7 % (0.00-10.9); Hematocrit 35.8 VOL% (42.0-52.0); Hemoglobin 12.2 GM/DL (14.0-18.0); Immature Granulocytes % 0.4 %; Immature Granulocytes Absolute 0.03 #; Lymphocytes # 4.4 10*3/uL (1.4-4.0); Lymphocytes % 55.6 % (21.2-54.2); Mean Corpuscular HGB Conc 34.1 GM/DL (32-36); Mean Corpuscular Volume 98.9 FL (87-102); Mean Platelet Volume 10.3 FL (9.6-12.0); Monocytes % 12.4 % (1.7-12.7); Neutrophils % 24.4 % (38.7-73.9); Platelet Count 202 T/CUMM (130-400); Red Blood Count 3.62 MC/CUMM (3.8-5.5); White Blood Count 7.9 T/CUMM (4-12)
[2021-11-26 06:06] LABS: Calcium 8.9 MG/DL (8.5-10.1); Potassium 4.1 MMOL/L (3.5-5.1); Risk Ratio 5.1; Thyroid Stimulating Hormone 2.04 uIU/ml (0.358-3.74); VLDL Cholesterol 34.6 MG/DL
[2021-11-26 06:20] LABS: Eosinophils 5 % (0-10); Lymphocytes 51 % (20-55); Total Cells Counted 100
[2021-11-26 06:21] LABS: Atypical Lymphocytes Few; Reactive Lymphocytes 1+; Smudge Cells Few
[2021-11-26 06:22] LABS: Anisocytosis Slight; Ovalocytes Few; Platelet Estimate Normal
[2021-11-26] MEDS: PANTOPRAZOLE 40 MG TABLET PO SCH (08:45)
[2021-11-26] MEDS: INSULIN REGULAR 100 UNIT/ML SUBCUT SCH ×4 (08:45→22:07)
[2021-11-26] MEDS: DOCUSATE SODIUM 100 MG CAPSULE PO SCH ×2 (08:45→22:11)
[2021-11-26] MEDS: SELENIUM 200 MCG PO SCH (12:40)
[2021-11-26] MEDS: ENOXAPARIN 30 MG/0.3 ML SYRINGE SUBCUT SCH (17:20)
[2021-11-26] MEDS: SODIUM CHLORIDE 0.9% 1,000 ML IV SCH (17:22)
[2021-11-26] MEDS ORDERED: ALFUZOSIN 10 MG TABLET PO SCH (21:00)
[2021-11-27 04:31] LABS: Basophils % 0.6 % (0.0-0.8); Eosinophils # 0.5 10*3/uL (0.0-0.87); Eosinophils % 7.1 % (0.00-10.9); Immature Granulocytes % 0.3 %; Immature Granulocytes Absolute 0.02 #; Lymphocytes # 4.5 10*3/uL (1.4-4.0); Lymphocytes % 63.6 % (21.2-54.2); Mean Corpuscular HGB Conc 34.4 GM/DL (32-36); Mean Corpuscular Volume 97.3 FL (87-102); Mean Platelet Volume 10.2 FL (9.6-12.0); Monocytes # 0.8 10*3/uL (0.11-0.8); Neutrophils % 16.4 % (38.7-73.9); Platelet Count 165 T/CUMM (130-400); Red Blood Count 3.29 MC/CUMM (3.8-5.5); Red Cell Distribution Width 14.2 % (9.3-17.3)
[2021-11-27 04:52] LABS: Calcium 8.3 MG/DL (8.5-10.1); Osmolality,Calculated 285.4 MOS/KG (273-304)
[2021-11-27 05:06] LABS: Eosinophils 8 % (0-10); Lymphocytes 67 % (20-55); Total Cells Counted 100
[2021-11-27 05:08] LABS: Atypical Lymphocytes Few; Platelet Estimate Adequate
[2021-11-27] MEDS: INSULIN REGULAR 100 UNIT/ML SUBCUT SCH ×2 (08:36→11:12)
[2021-11-27] MEDS: DOCUSATE SODIUM 100 MG CAPSULE PO SCH (10:26)
[2021-11-27] MEDS: PANTOPRAZOLE 40 MG TABLET PO SCH (10:27)
[2021-11-27] MEDS: SELENIUM 200 MCG PO SCH (10:27)
[2021-11-27 12:14] VITALS: BP 128/68
== END 2021-11-27 13:09 | disposition home or self-care (01) ==
LOC: EDBD → EDUNIT# → N.EDINP 15:19 → N.ED 15:19 → N.EDINP 20:07 → N.TELEN 21:00
PROVIDERS: ADMIT Hospitalist; ATTEND Hospitalist

== ENCOUNTER 2022-03-13 11:47 | Observation (INO) ==
[2022-03-13] MEDS ORDERED: SODIUM CHLORIDE 0.9% 1,000 ML IV STA ×2 (12:14→12:58)
[2022-03-13] MEDS ORDERED: INSULIN LISPRO 100 UNIT/ML SUBCUT STA (12:52)
[2022-03-13 13:47] LABS: Basophils % 0.4 % (0.0-0.8); Eosinophils # 0.3 10*3/uL (0.0-0.87); Eosinophils % 3.6 % (0.00-10.9); Hematocrit 34.4 VOL% (42.0-52.0); Hemoglobin 12.4 GM/DL (14.0-18.0); Immature Granulocytes % 0.5 %; Immature Granulocytes Absolute 0.04 #; Lymphocytes # 3.7 10*3/uL (1.4-4.0); Lymphocytes % 48.5 % (21.2-54.2); Mean Platelet Volume 10.3 FL (9.6-12.0); Monocytes # 0.6 10*3/uL (0.11-0.8); Monocytes % 8.1 % (1.7-12.7); Neutrophils % 38.9 % (38.7-73.9); Platelet Count 192 T/CUMM (130-400); Red Blood Count 3.62 MC/CUMM (3.8-5.5); Red Cell Distribution Width 13.1 % (9.3-17.3); White Blood Count 7.7 T/CUMM (4-12)
[2022-03-13 14:06] LABS: Albumin 3.1 G/DL (3.4-5.0); Bilirubin,Total 0.7 MG/DL (0.20-1.00); Calcium 8.5 MG/DL (8.5-10.1); Osmolality,Calculated 296.8 MOS/KG (273-304); Potassium 4.9 MMOL/L (3.5-5.1); Total Protein 6.1 G/DL (6.4-8.2)
[2022-03-13] MEDS ORDERED: GLUCAGON 1 MG VIAL IM PRN (16:25)
[2022-03-13] MEDS ORDERED: DEXTROSE 10% 250 ML BAG IV PRN (16:30)
[2022-03-13 16:43] LABS: Bilirubin,Urine Negative (Negative); Blood, Urine Negative (Negative); Glucose,Urine (UA) >=500 mg/dL (Negative); Ketones,Urine Negative (Negative); Mucus,Urine Occasional /LPF (Occasional); Nitrite,Urine Negative (Negative); Protein,Urine Negative (Negative); RBC,Urine 1 /HPF (0-4); Squamous Epithelial Cell,Urine Occasional /HPF (0-10); Urine Appearance CLEAR (Clear); Urine Color Yellow (Yellow); Urine Specific Gravity 1.021 (1.001-1.035); Urine Urobilinogen < 2.0 eU/dL (<2.0)
[2022-03-13] MEDS: HEPARIN 5,000 UNIT/1 ML VIAL SUBCUT SCH (16:45)
[2022-03-13] MEDS: INSULIN LISPRO 100 UNIT/ML SUBCUT SCH ×2 (18:34→21:07)
[2022-03-13] MEDS: SODIUM CHLORIDE 0.9% 1,000 ML IV SCH (18:35)
[2022-03-13] MEDS ORDERED: ATORVASTATIN 20 MG TABLET PO SCH (21:00)
[2022-03-14] MEDS: HEPARIN 5,000 UNIT/1 ML VIAL SUBCUT SCH ×2 (00:18→08:53)
[2022-03-14] MEDS: SODIUM CHLORIDE 0.9% 1,000 ML IV SCH (04:50)
[2022-03-14 05:52] LABS: Basophils % 0.4 % (0.0-0.8); Eosinophils # 0.4 10*3/uL (0.0-0.87); Eosinophils % 5.4 % (0.00-10.9); Hematocrit 37.2 VOL% (42.0-52.0); Immature Granulocytes % 0.5 %; Immature Granulocytes Absolute 0.04 #; Lymphocytes % 50.6 % (21.2-54.2); Mean Corpuscular HGB Conc 34.9 GM/DL (32-36); Mean Corpuscular Volume 96.4 FL (87-102); Mean Platelet Volume 10.2 FL (9.6-12.0); Monocytes # 0.8 10*3/uL (0.11-0.8); Neutrophils % 33.1 % (38.7-73.9); Platelet Count 189 T/CUMM (130-400); Red Blood Count 3.86 MC/CUMM (3.8-5.5); Red Cell Distribution Width 13.2 % (9.3-17.3)
[2022-03-14 06:19] LABS: Atypical Lymphocytes Few; Band Neutrophils 2 % (0-10); Eosinophils 6 % (0-10); Lymphocytes 50 % (20-55); Total Cells Counted 100
[2022-03-14 06:21] LABS: Platelet Estimate Adequate
[2022-03-14 06:29] LABS: Calcium 8.8 MG/DL (8.5-10.1); Potassium 3.8 MMOL/L (3.5-5.1); Risk Ratio 3.51; Thyroid Stimulating Hormone 1.54 uIU/ml (0.358-3.74); VLDL Cholesterol 25.6 MG/DL
[2022-03-14] MEDS: INSULIN LISPRO 100 UNIT/ML SUBCUT SCH ×2 (08:54→12:29)
[2022-03-14] MEDS ORDERED: amLODIPine 10 MG TABLET PO SCH (09:00)
[2022-03-14] MEDS ORDERED: CLOPIDOGREL 75 MG TABLET PO SCH (09:00)
[2022-03-14] MEDS ORDERED: INSULIN NPH/REGULAR 70/30 100 UNIT/ML SUBCUT SCH ×2 (09:00→16:30)
[2022-03-14 12:35] VITALS: BP 144/85
== END 2022-03-14 15:00 | disposition home or self-care (01) ==
LOC: N.EDINP 11:47 → N.ED 11:47 → N.TELEN 17:04
PROVIDERS: ADMIT Internal Medicine; ATTEND Internal Medicine